=== PATIENT | male | born 1970 ===

== ENCOUNTER 2022-11-12 12:53 | Outpatient (OUT) | payer OTHER, SELFPAY ==
--- NOTE | 2022-11-12 12:55 | VEIN_ITS ---
Patient: AMISH NAVAS Exam Date: 11/12/2022 : 1970 Gender:M Ordering : MRS. TRACIE LYON . Admission #: [id number] Family : Order #: [id number] CLICK HERE TO VIEW EXAM RADIOLOGY REPORT PROCEDURE: VC EXT VENOUS REFLUX KEVIN LMTD COMPARISON: None. INDICATIONS: I83.813 Pain due to varicose veins of bilateral leg veins TECHNIQUE: Duplex imaging of the lower extremity to assess the deep and superficial venous system for the presence of deep or superficial venous incompetence and to document the location and severity of disease. The study includes evaluation of the great saphenous vein (GSV), anterior accessory saphenous vein (AASV) and small saphenous vein (SSV). Patient scanned in reverse Trendelenburg and standing. FINDINGS: RIGHT LOWER EXTREMITY: Saphenofemoral Junction Reflux: Yes 8.7mm 1.3 sec GSV: Diam (mm) Reflux/ Time (sec) Proximal Thigh 6.6 Yes 0.8 Mid Thigh 2.9 No Distal Thigh 2.2 No Prox Calf 3.7 Yes 0.6 Mid Calf 3.4 No Saphenopopliteal Junction Reflux: 4.2mm Yes 1.2 SSV: Proximal Calf 4.6 No Mid Calf 4.3 Yes 0.3 AASV: Proximal Thigh 2.7 No Mid Thigh 2.4 Distal Thigh Thrombi: No acute or chronic thrombus visualized Compressibility: Normal Flow: Normal Preforator: Dist/med calf 3.8mm with 0.9s reflux. Tech Note: Incompetent GSV. Patent varicose vein prox/med calf 2.8mm with 0s reflux. Patent varicose vein dist/med thigh 2.3mm with 0s reflux. LEFT LOWER EXTREMITY: Saphenofemoral Junction Reflux: Yes 7.4 mm 2.1 sec GSV: Diam (mm) Reflux/Time (sec) Proximal Thigh 8.2 Yes 1.1 Mid Thigh 3.7 No Distal Thigh 3.7 No Prox Calf 2.7 Yes 0.9 Mid Calf 2.6 No Saphenopopliteal Junction Relux: 6.7 mm Yes 1.2 SSV: Proximal Calf 5.8 Yes 1.1 Mid Calf 5.0 No AASV: Proximal Thigh 4.4 No Mid Thigh Distal Thigh Thrombi: No acute or chronic thrombus visualized Compressibility: Normal Flow: Normal Yard Attendant: Dist/med calf 0.8mm with 0.8s reflux. Tech Note: Incompetent GSV and SSV. Patent varicose vein mid/med thigh 2.8mm with 0s reflux. Patent varicose vein mid/med calf 1.8mm with 0s reflux. Patent varicose vein thigh 1.7mm with 0s reflux. Patent varicose vein 3.4mm with 0s reflux. CONCLUSION: 1. Mild dilation of proximal segment of the great saphenous vein bilaterally with mild reflux. 2. Mildly dilated an incompetent left small saphenous vein. 3. Mildly dilated and slightly incompetent [employer] vein within right distal medial calf. 4. No significant branch saphenous varicosities. Dictated by: Riley Lund M.D. on 11/12/2022 at 14:07 Approved by: Riley Lund M.D. on 11/12/2022 at 14:30
--- NOTE | 2022-11-12 12:55 | VEIN_ITS ---
Patient: AMISH NAVAS Exam Date: 11/12/2022 : 1970 Gender:M Ordering : MRS. TRACIE LYON . Admission #: [id number] Family : Order #: [id number] CLICK HERE TO VIEW EXAM This report includes an Addendum and supersedes previous reports for this exam. RADIOLOGY REPORT PROCEDURE: [facility] - OFFICE VISIT INITIAL COMPARISON: None. PROGRESS NOTES: [age] year old male who presents with a 3 year history of leg swelling, edema, heaviness, skin discoloration. The patient's left leg symptoms are worse than the right. There has been a progression of symptoms over time. This increases with prolonged standing throughout today. The patient describes an improvement with rest and elevation, compression stockings. The patient denies any signs and symptoms to suggest arterial ischemia. The patient describes a family history : Noncontributory. The patient has drinking and smoking history of : Moderate alcohol consumption; no tobacco use. Patient has a past medical history significant for stroke, hyperlipidemia, hypertension, peripheral neuropathy, atrial fibrillation. The patient denies a history of deep venous thrombus or pulmonary embolus. See separate history and physical for medication list. No prior treatment for varicose or spider veins. Current use of compression stockings. After review of nurse notes, history and physical exam I discussed at length the pathophysiology of venous hypertension and possible treatments, therapies and strategies available. We discussed at length the importance of elevating the lower extremities above the level of the heart, increased physical activity and compression stocking use. Ultrasound venous reflux study performed today was discussed at length with the patient. The report demonstrates mildly incompetent and dilated proximal segment of the great saphenous vein bilaterally. Incompetent and mildly dilated left small saphenous vein.. PHYSICAL EXAM: The right leg demonstrates no significant varicosities, no spider veins, no ulceration, moderate edema, moderate skin discoloration. The left leg demonstrates no significant varicosities, no spider veins, no ulceration, moderate edema, moderate skin discoloration. Both thighs, legs and feet were symmetrically warm to the touch. Good posterior tibial and dorsalis pedis pulses were present bilaterally. VEIN/[facility] Facility EST Comprehensive IMPRESSION: 1. Mild venous insufficiency involving the proximal segments of the great saphenous vein bilaterally and involving the left small saphenous vein; less than expected for degree of ankle edema and distal lower extremity skin staining. 2. No significant lower extremity varicose veins 3. Moderate bilateral lower extremity subcutaneous edema 4. No flow significant arterial disease 5. CEAP: C4a, AP, , [place] PLAN: 1. Continued use of compression stockings 2. Elevated legs and increased physical activity symptomatic relief 3. Case will be peer reviewed to consider correlation between the much greater symptomatology compared to appreciable vein disease and any benefits of treatment at this time. An addendum will be added at that time. Nurse notes, history and physical were reviewed and confirmed, see attached forms. The nurse was present throughout the physical exam and consultation Dictated by: Riley Lund M.D. on 11/12/2022 at 14:30 Approved by: Riley Lund M.D. on 11/12/2022 at 14:39 ADDENDUM: Patient will be referred to the lymphedema clinic for evaluation and possible treatment. Dictated by: Riley Lund M.D. on 11/16/2022 at 09:18 Approved by: Riley Lund M.D. on 11/16/2022 at 09:19
== END 2022-11-12 12:54 | disposition home or self-care (01) ==
LOC: VC 12:54
PROVIDERS: PCP Nurse Practitioner; Visit Provider Nurse Practitioner
DX: R60.0 Localized edema (principal)
CPT/HCPCS: 93970; G0463

== ENCOUNTER 2023-12-08 14:33 | Outpatient (RCR) | payer OTHER, SELFPAY | END 2023-12-09 08:45 | disposition home or self-care (01) | LOC: OT 14:33 | PROVIDERS: PCP Nurse Practitioner; Visit Provider Nurse Practitioner | DX: I89.0 Lymphedema, not elsewhere classified (principal) | CPT/HCPCS: 97140; 97166; 97530 ==